=== PATIENT | female | born 1950 | race African-American/Black ===

== ENCOUNTER 2018-08-07 07:02 | Day surgery (SDC) | payer OTHER ==
[2018-08-03 18:56] VITALS: BMI 32.2
[2018-08-07] MEDS ORDERED: MIDAZOLAM HCL 2 MG/2 ML SINGLE DOSE VIAL ONE (07:59)
[2018-08-07] MEDS ORDERED: SUCCINYLCHOLINE CHLORIDE 200 MG/10 ML VIAL ONE (08:37)
[2018-08-07] MEDS ORDERED: PROPOFOL 20 ML ONE (08:37)
[2018-08-07] MEDS ORDERED: diazePAM 5 MG TABLET PO PRN (09:46)
--- NOTE | 2018-08-07 09:48 | PN ---
Progress Note (short form) - Note Progress Note: 68F s/p RIGHT shoulder open Jarek procedure, Neer Decompression, & rotator cuff repair POD #0. -Pain control: oxycodone PRN. -Incentive spirometry. -No chemical DVT PPx. -RUE sling. -No RIGHT shoulder ROM. -Daily RIGHT elbow, wrist & hand ROM. -Keep dressing clean & dry. -f/u in [facility] [place] Office on Friday08/07/2018; call for appointment ; . Zachariah Earl MD (Orthopaedic Surgery).
--- NOTE | 2018-08-07 09:50 | OP ---
Operative Note - Note: Operative Date: 08/07/18 Pre-Operative Diagnosis: Right shoulder impingement syndrome Operation: Right shoulder open: 1. Jarek procedure. 2. Neer decompression. 3. Primary rotator cuff repair (bursal sided, partial thickness tear) Post-Operative Diagnosis: Same as Pre-op Surgeon: Zachariah Earl Machine Gunner: Dwayne Earl Anesthesiologist/PARCEL POST ORDER CLERK: Jose Alfredo Marsh Anesthesia: General Specimens Removed: Excision arthroplasty AC joint Estimated Blood Loss (mls): 50 Fluid Volume Replaced (mls): 500 (Crystalloid) Operative Report Dictated: Yes
[2018-08-07] MEDS ORDERED: BENZOIN/ALOE VERA/STORAX/TOLU 58 ML BOTTLE ONE (09:53)
[2018-08-07] MEDS ORDERED: ATORVASTATIN PO SCH (10:00)
[2018-08-07] MEDS ORDERED: PATIENT'S OWN MEDICATION (NON-FORMULARY) (Clonidine Hcl [Clonidine Hcl] 0.2 MG) PO SCH (10:00)
[2018-08-07] MEDS ORDERED: HYDROCHLOROTHIAZIDE 25 MG TABLET (FP) PO SCH (10:00)
[2018-08-07] MEDS ORDERED: AMLODIPINE PO SCH (10:00)
[2018-08-07] MEDS ORDERED: PROMETHAZINE HCL 25 MG/1 ML VIAL IVPUSH PRN (10:15)
[2018-08-07] MEDS ORDERED: ONDANSETRON 4 MG/2 ML VIAL IVPUSH PRN (10:15)
[2018-08-07] MEDS ORDERED: oxyCODONE HCL 5 MG TABLET PO PRN ×2 (10:15)
[2018-08-07 10:26] VITALS: TEMP 97.9
--- NOTE | 2018-08-07 10:57 | OP ---
DATE OF OPERATION: DATE OF DICTATION: 08/07/2018 SURGEON: Zachariah Earl MD CORK MIXER: Dwayne Earl MD PREOPERATIVE DIAGNOSIS: Left impingement syndrome shoulder with associated right rotator cuff tear. POSTOPERATIVE DIAGNOSIS: Left impingement syndrome shoulder with associated right rotator cuff tear. OPERATION PERFORMED: 1. Neer decompression comprising of: A. Excision arthroplasty left distal clavicle. B. Acromioplasty. 2. Transfixion coracoacrominal ligament. 3. Repair of chronic rotator cuff tear. ANESTHESIA: Scalene block with general anesthesia. ANTIBIOTICS GIVEN: 2 g Kefzol, 1 g vancomycin preoperatively. DESCRIPTION OF PROCEDURE: The patient was correctly identified and brought into the operating room. Left upper limb was draped free. Skin was prepped with Betadine scrub solution, wiped off with alcohol, DuraPrep applied. The patient was placed in the beach chair shoulder frame seated position. A time-out was called. Imaging was available for intraoperative evaluation. The incision was made in the lines of Peng between the tip of the acromion to the tip of the coracoid process. Subcutaneous tissue dissected off the deltoid. The first structure encountered after lifting the proximal flap of tissue by placing a Holmann on the posterior border of the clavicle exposing the superior surface of the clavicle and freeing the soft tissue by approximately 1 cm off the superior aspect of the distal end of the clavicle to expose the acromioclavicular joint. A 1-cm beveled incision was made into the bone using oscillating saw in the distal 1 cm of the clavicle delivered into the wound and resected. This gave easy access to the undersurface of the deltoid. This was lifted using a Holmann. Using bipolar Bovie, the coracoacrominal artery vessels were dichotomized. The coracoacrominal ligament was clearly noted. All bleeding was well controlled. A 15 blade enabled transection of the coracoacrominal ligament appropriately. This was extended into the top of the shoulder joint right to the distal edge of the ligament itself freeing the entire subacromial space. Placing a finger in the subacromial space was virtually impossible just because of the tightness of the anatomy. A Holmann was placed in the undersurface of the acromion leaving the humeral head down, and an appropriate acromioplasty was then performed using an oscillating saw. This was done on the midsection of the acromioclavicular joint and the oscillating saw beveled and appropriate amount of bone under vision as well as under digital palpation the blocking and impingement of the humeral head against the acromion was removed. Tissues were washed out appropriately. Self-retaining retractors to separate the lateral deltoid transection and the deep space so that the rotator cuff was easily visualized. The bursa was noted, debrided very mildly. The degenerative tear seen in the midsection about 1 cm away from the bone attachment of the rotator cuff was noted and two No. 1 Vicryl sutures placed through this after trimming avascular tissue with a 15 blade. This completed the rotator cuff repair. The findings were exactly as noted on the MRI. The wounds were thoroughly lavaged. The closure was as follows: Deltoid ligament with capsule 1 Vicryl to close the entire space. Subcuticular 1-0 and 2-0 Vicryl, skin 3-0 Monocryl with Steri-Strips. OPERATION COMMENT: The operation went well. No complications. MD JASVIR Velásquez/[id number]
[2018-08-07 11:37] VITALS: BP 120/80; PULSE 75
[2018-08-07] MEDS ORDERED: diphenhydrAMINE HCL 50 MG CAPSULE PO SCH (22:00)
== END 2018-08-07 12:06 | disposition home or self-care (01) ==
LOC: FASU 07:02
PROVIDERS: ATTEND Orthopaedic Surgery Orthopaedic Surgery of the Spine
PROC: 0MN20ZZ Release Left Shoulder Bursa and Ligament, Open Approach (ICD-10-PCS; 2018-08-07)
PROC: 0LQ20ZZ Repair Left Shoulder Tendon, Open Approach (ICD-10-PCS; 2018-08-07)
PROC: 0PBB0ZZ Excision of Left Clavicle, Open Approach (ICD-10-PCS; principal; 2018-08-07 07:30)
DX: M75.42 Impingement syndrome of left shoulder (principal); M75.122 Complete rotator cuff tear or rupture of left shoulder, not specified as traumatic
CPT/HCPCS: 94760